=== PATIENT | male | born 1960 | race Caucasian/White ===

== ENCOUNTER 2018-07-18 10:23 | Emergency (ER) | payer MEDICAID, MEDICARE ==
--- OUTSIDE RECORDS SUMMARY | 2018-07-18 10:33 | XMS REPORT | Continuity of Care Document ---
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 Payers Date Identification Numbers Payment Provider Subscriber Effective: 2014 Policy Number: [id number] Medicare - Bswny Umd Main Johnson PayID: [id number] [address] [place] [address] Effective: 2014 Policy Number: [id number] Medicaid After Medicare Main Choiver Expires: 2017 Group Name: 2 1 [address] PayID: [id number] [place] [address] Effective: 2017 Policy Number: [id number] Medicaid After Medicare Maintejinder Choiver Group Name: 2 1 [address] PayID: [id number] [place] [address] Advance Directives Description No Information Available Problems Description No Information Family History Date Family Member(s) Observation Comments Father 87 Father Prostate Disease Father due to "Old Age" () Mother 86 Mother Stroke Age 83 on coumadin Mother due to "Old Age" () Social History Type Date Description Comments Sex Unknown Marital Status Lives With Alone Diet Healthy, Well Balanced he does not eat candy or soda...He does eat typical [place] foods....subs, fish sandwich..gets some vegetables. 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 Tobacco Use Start: Unknown Never Smoked Cigarettes ETOH Use Rarely consumes alcohol once/month at most Enjoy Exercising Enjoys exercising he walks on occasion, not as active as he used to be Sun Exposure Does not use sunscreen Sun Exposure Has never experienced blistering from sunburns Seat Belt/Car Seat always uses car seat Bike Helmet Always Currently Active Patient is currently not currently sexually sexually active active STD's No STD History Allergies, Adverse Reactions, Alerts Description No Known Drug Allergies Medications Medication Date Status Form Strength Qnty SIG Indications Ordering Provider Flomax 06/20/ Active Capsules 0.4mg 30cap 1 by mouth N40.1 Shawnti 2019 s every day JOSEP DobsonP-C Sildenafil 08/18/ Active Tablets 20mg 28tab Take Two F52.21 Shawnti Citrate 2017 s Tablets By Willy Dosbon 1 Hour PICKING MACHINE OPERATOR HELPER-C Prior To [place] / Active Tablets 300mg 3 tabs po Unknown Carbonate 0000 bid Lamotrigine / Active Tablets 300mg JerichoG 0000 MD allie Risperidone / Active Tablets 1mg (pt states Ramon Echavarria 0000 he takes MD allie rarely) Levothyroxine / Active Tablets 75mcg Ramon Echavarria Sodium 0000 MD allie Hydroxyzine HCL / Active Tablets 50mg (pt states Unknown 0000 he takes rarely) Azithromycin 01/11/ Hx Tablets 250mg 6tabs 2 by mouth Ramesh 2017 - then 1 Mazin Llanos, 06/20/ by mouth PICKING MACHINE OPERATOR HELPER-C 2019 daily for 4 days Benzonatate 01/11/ Hx Capsules 100mg 30cap 1 by mouth Ramesh 2017 three times Mazin Llanos, 06/20/ a day if PICKING MACHINE OPERATOR HELPER-C 2018 needed for cough Zyrtec Allergy 08/10/ Hx Tablets 10mg 30tab 1 tab daily R05 Oneyda 2017 - for Shortle, 09/29/ allergies/po MEDICAL ASSOCIATE 2017 [address] nasal drip Sildenafil 07/07/ Hx Tablets 50mg 14tab 1 by mouth 1 F52.21 Shawnti Citrate 2017 - s hour prior Mazin Llanos, 08/18/ to sexual PICKING MACHINE OPERATOR HELPER-C 2018 activity Cialis 07/06/ Hx Tablets 20mg 14tab take 1/2 to F52.21 Justicewnti 2017 - 1 tablet by Mazin Llanos, 07/07/ mouth as PICKING MACHINE OPERATOR HELPER-C 2018 needed Benzonatate 01/05/ Hx Capsules 200mg 30cap 1 by mouth R05 Oneyda 2017 - s three times Shortle, 09/11/ a day for MEDICAL ASSOCIATE 2018 cough Benzonatate 11/25/ Hx Capsules 200mg 30cap 1 by mouth J18.9 Ramesh 2017 - s three times R. Storm, 01/05/ a day for PICKING MACHINE OPERATOR HELPER-C 2017 cough Azithromycin 11/25/ Hx Tablets 250mg 6tabs 2 by mouth J18.9 Justicewnti 2017 - today then 1 R. Storm, 12/05/ by mouth PICKING MACHINE OPERATOR HELPER-C 2017 daily for 4 days Nizoral 07/13/ Hx Cream 2% 30gm apply qd for 110.1 Miri 2006 - 2-3 weeks A. 04/01/ Bobby, 2013 [facility] Lamotrigine 01/26/ Hx Tablets 25mg 50tab 1 hs x2 Silvio 2004 - s weeks, then Lessinger 07/13/ 2 hs x 2 , MTrudy 2006 weeks Lamotrigine 01/26/ Hx Tablets 100mg 60tab 1 hs x 1 Silvio 2004 - s week, then 1 Lessinger 07/13/ bid , Isis 2006 Zyprexa 03/17/ Hx Tablets 2.5mg 60tab 1-2 hs Silvio 2002 - s [facility] 07/13/ , Isis 2006 Anusol-HC 2.5 % 01/06/ Hx 30gm apply qd/bid Silvio Cream 2002 - prn [facility] 07/13/ Isis 2006 Nizoral 09/05/ Hx Cream 2% 60gm apply qd Miri 2001 - x2-6 weeks A. 12/18/ Bobby, 2003 [facility] [place] 09/05/ Hx 300mg 270un 3 hs Silvio 2001 - its [facility] 07/13/ , Isis 2006 Cogentin // Hx Solution 1mg/ml Unknown 2013 Vitamin B12 / Hx Tablets ER 1000mcg 2 po qd Unknown - 2013 Risperdal / Hx Tablets 3mg 1 PO hs Unknown - 2013 Cogentin / Hx Solution 1mg/ml 1 mg PO Unknown 0000 - daily 2014 Vistaril / Hx Capsules 50mg 1 po hs Unknown 0000 - 2014 Fluphenazine / Hx Solution 25mg/ml 25mg every Unknown Decanoate 0000 - other week 2014 Medications Administered in Office Medication Date Status Form Strength Qnty SIG Indications Ordering Provider TB,Intradermal Administered Injection Unknown (PPD, Mantoux) 012 Immunizations CPT Code Status Date Vaccine Lot # [id number] Given 09/29/2017 Tdap (Adacel) [id number] Given 01/05/2017 Influenza Virus Vaccine, Quadrivalent, 3 Yr > [id number] Quad, Preserv Free 60285 Given 02/11/2016 Influenza Virus Vaccine, Quadrivalent, 3 Yr > [id number] Quad, Preserv Free 89605 Given 04/01/2013 Influenza Vaccine-Preservative Free 3 Yrs And [id number] Above 45438 Given 08/28/2008 DT (Adult) 55539 Given 07/13/2006 Td Age 7 to adult Decavac, Tenivac, [employer] [id number] 78732 Given 08/11/1994 DT (Adult) Vital Signs Date Vital Result Comment 06/20/2018 4:31pm Weight 300.00 lb Weight 136.080 kg BP Systolic 130 mmHg BP Diastolic 88 mmHg Heart Rate 80 /min Body Temperature 96.5 F Respiratory Rate 16 /min O2 % BldC Oximetry 94 % 01/11/2018 4:25pm Weight 307.00 lb Weight 139.255 kg BP Systolic 132 mmHg BP Diastolic 80 mmHg Heart Rate 84 /min Body Temperature 98.5 F Respiratory Rate 18 /min O2 % BldC Oximetry 95 % 09/29/2017 1:38pm Weight 300.00 lb Weight 136.080 kg BP Systolic 144 mmHg BP Diastolic 88 mmHg Heart Rate 78 /min Body Temperature 98.3 F Respiratory Rate 18 /min Height 73.5 inches 6'1.50" BMI (Body Mass Index) 39.0 kg/m2 O2 % BldC Oximetry 98 % 09/11/2017 10:50am Weight 299.00 lb Weight 135.626 kg BP Systolic 138 mmHg BP Diastolic 92 mmHg Heart Rate 77 /min Body Temperature 98.5 F Respiratory Rate 17 /min Height 73 inches 6'1" BMI (Body Mass Index) 39.4 kg/m2 O2 % BldC Oximetry 96 % 08/10/2017 4:43pm Weight 305.00 lb Weight 138.348 kg BP Systolic 138 mmHg BP Diastolic 82 mmHg Heart Rate 72 /min Body Temperature 99.2 F Respiratory Rate 16 /min O2 % BldC Oximetry 98 % 07/06/2017 9:11am Weight 301.00 lb Weight 136.534 kg BP Systolic 144 mmHg BP Diastolic 82 mmHg Heart Rate 74 /min Body Temperature 97.5 F Respiratory Rate 18 /min 03/30/2017 11:34am BP Systolic 130 mmHg BP Diastolic 78 mmHg Heart Rate 72 /min Body Temperature 98.5 F Respiratory Rate 15 /min O2 % BldC Oximetry 98 % 01/05/2017 4:12pm Weight 298.00 lb Weight 135.173 kg BP Systolic 180 mmHg BP Diastolic 65 mmHg Heart Rate 80 /min Body Temperature 98.6 F O2 % BldC Oximetry 98 % 11/25/2016 10:45am Weight 287.00 lb Weight 130.183 kg BP Systolic 120 mmHg BP Diastolic 80 mmHg Heart Rate 80 /min Body Temperature 99.1 F Respiratory Rate 20 /min O2 % BldC Oximetry 96 % 02/22/2016 8:53am Weight 289.00 lb Weight 131.090 kg BP Systolic 130 mmHg BP Diastolic 78 mmHg Heart Rate 60 /min Body Temperature 98.6 F Respiratory Rate 16 /min 02/11/2016 10:31am Weight 288.00 lb Weight 130.637 kg BP Systolic 146 mmHg BP Diastolic 90 mmHg Heart Rate 66 /min Body Temperature 98.2 F Height 72.5 inches 6'0.50" BMI (Body Mass Index) 38.5 kg/m2 09/29/2014 8:49am Weight 276.00 lb Weight 125.194 kg BP Systolic 130 mmHg BP Diastolic 80 mmHg Heart Rate 68 /min Height 73.5 inches 6'1.50" BMI (Body Mass Index) 35.9 kg/m2 04/01/2013 10:05am Weight 248.00 lb Weight 112.493 kg BP Systolic 100 mmHg BP Diastolic 70 mmHg Heart Rate 72 /min 06/29/2010 9:11am Weight 244.00 lb Weight 110.678 kg BP Systolic 116 mmHg BP Diastolic 74 mmHg Body Temperature 97.7 F 09/29/2009 4:56pm Weight 257.00 lb Weight 116.575 kg BP Systolic 110 mmHg BP Diastolic 70 mmHg Heart Rate 64 /min 09/21/2009 4:36pm Weight 262.00 lb Weight 118.843 kg BP Systolic 120 mmHg BP Diastolic 74 mmHg Heart Rate 64 /min 01/10/2008 12:28pm Weight 230.00 lb Weight 104.328 kg BP Systolic 130 mmHg BP Diastolic 60 mmHg Heart Rate 72 /min Height 72.5 inches 6'0.50" BMI (Body Mass Index) 30.8 kg/m2 03/06/2007 11:19am Weight 236.00 lb Weight 107.050 kg BP Systolic 138 mmHg BP Diastolic 78 mmHg Body Temperature 97.0 F Height 72.5 inches 6'0.50" BMI (Body Mass Index) 31.6 kg/m2 07/13/2006 1:33pm Weight 243.00 lb Weight 110.225 kg BP Systolic 110 mmHg BP Diastolic 70 mmHg Heart Rate 62 /min Height 72.5 inches 6'0.50" BMI (Body Mass Index) 32.5 kg/m2 01/20/2006 11:29am Weight 247.00 lb Weight 112.039 kg BP Systolic 100 mmHg BP Diastolic 70 mmHg Body Temperature 98.7 F 01/26/2005 4:43pm Weight 260.00 lb Weight 117.936 kg BP Systolic 130 mmHg BP Diastolic 80 mmHg 01/19/2005 4:04pm Weight 256.00 lb Weight 116.122 kg BP Systolic 128 mmHg BP Diastolic 80 mmHg 03/31/2003 4:04pm Weight 277.00 lb Weight 125.647 kg BP Systolic 130 mmHg BP Diastolic 80 mmHg 03/17/2003 4:01pm Weight 265.00 lb Weight 120.204 kg BP Systolic 120 mmHg BP Diastolic 76 mmHg 01/06/2003 5:30pm Weight 271.00 lb Weight 122.926 kg BP Systolic 138 mmHg BP Diastolic 80 mmHg 03/15/2002 3:20pm Weight 256.00 lb Weight 116.100 kg BP Systolic 120 mmHg BP Diastolic 70 mmHg 12/07/2001 4:23pm Weight 247.00 lb Weight 112.000 kg BP Systolic 110 mmHg BP Diastolic 70 mmHg Heart Rate 80 /min Respiratory Rate 18 /min 09/05/2001 4:04pm Weight 252.00 lb BP Systolic 120 mmHg BP Diastolic 80 mmHg Heart Rate 60 /min Height 71 inches BMI (Body Mass Index) 35.1 kg/m2 Results Test Date Facility Test Result H/L Range Note Laboratory test 06/20/2018 [facility] PSA Screening 1.073 ng/mL N 0-4.000 1 finding [phone] Urine DIP 06/20/2018 In House Lab Leukocytes Neg Neg [phone] - Urine Nitrites Neg Neg Urobilinogen Norm Norm Total Protein Urine Neg Neg Urine pH 5 5-6 Urine Blood Neg Neg Specific [place] 1.01 1.01-1.02 Urine Ketones NEG Neg Urine Bilirubin NEG Neg Urine Glucose NORM Norm Comp Metabolic 08/18/2017 [facility] Sodium 138 mmol/ L Low 139-145 2 Panel [phone] Potassium 4.5 mmol/L N 3.5-5.0 Chloride 108 mmol/L N 101-111 Co2 Carbon Dioxide 24 mmol/L N 22-32 Anion Gap 6 mmol/L N 2-11 Glucose 117 mg/dL High 70-100 Blood Urea Nitrogen 14 mg/dL N 6-24 Creatinine 1.03 mg/dL N 0.67-1.17 BUN/Creatinine Ratio 13.6 N 8-20 Calcium 9.8 mg/dL N 8.6-10.3 Total Protein 6.9 g/dL N 6.4-8.9 Albumin 4.3 g/dL N 3.2-5.2 Globulin 2.6 g/dL N 2-4 Albumin/Globulin Ratio 1.7 N 1-3 Total Bilirubin 0.50 mg/dL N 0.2-1.0 Alkaline Phosphatase 68 U/L N 34-104 Alt 36 U/L N 7-52 Ast 21 U/L N 13-39 Egfr Non- 75.0 >60 Egfr 96.4 >60 3 Lipid Profile 08/18/2017 [facility] Triglycerides 131 mg/dL 4 (Trig/Chol/HDL) [phone] Cholesterol 126 mg/dL 5 HDL Cholesterol 30.3 mg/dL 6 LDL Cholesterol 70 mg/dL 7 Laboratory test 08/18/2017 [facility] [place] 0.89 mmol/L N 0.6-1.2 8 finding [phone] Thyroxine 7.18 g/mL N 6.09-12.23 9 TSH (Thyroid Stimulating Horm) 5.03 mcIU/mL N 0.34-5.60 10 Hemoglobin A1c 5.4 % N 4.0-5.6 11 Testosterone 07/06/2017 [facility] Free 4.90 3.87- 14.7 12 Free & Total [phone] Testosterone ng/dL ng/dl Testosterone 129 ng/dL Abnormal 240-950 13 Laboratory 07/06/2017 [facility] Syphillis Igg Nonreactive Nonreactive 14 test finding [phone] W/Reflex RPR HIV 1/2 AB 07/06/2017 [facility] HIV 1 2 Nonreactive Nonreactive 15 Evaluation [phone] Antibody GC/Chlamydia 07/06/2017 [facility] Chlamydia Negative Negative Amplified Rna [phone] trachomatis Rna Neisseria gonorrhoeae (GC) Rna Negative Negative T.Vaginalis, Misc, 07/06/2017 [facility] Trichomonas Urine (Male 16 Amp Rna [phone] vaginalis Source: Carmela <SEE NOTE> T. vaginalis, Misc, amp Rna Negative Negative 17 CBC No Diff 07/06/2017 [facility] White Blood 6.3 10^ 3/uL N 3.5-10.8 [phone] Count Red Blood Count 5.20 10^6/uL N 4.0-5.4 Hemoglobin 15.7 g/dL N 14.0-18.0 Hematocrit 47 % N 42-52 Mean Corpuscular Volume 90 fL N 80-94 Mean Corpuscular Hemoglobin 30 pg N 27-31 Mean Corpuscular HGB Conc 34 g/dL N 31-36 Red Cell Distribution Width 14 % N 10.5-15 Platelet Count 221 10^3/uL N 150-450 Mean Platelet Volume 8.3 um3 N 7.4-10.4 Laboratory test 07/06/2017 [facility] TSH (Thyroid 2.90 mcIU/mL N 0.34-5.60 18 finding [phone] Stim Horm) PSA Screening 2.033 ng/mL N 0-4.000 19 Hemoglobin A1c (Glyco HGB) 5.5 % N 4.0-5.6 20 Hepatitis C Antibody Nonreactive Nonreactive 21 Lipid Profile 07/06/2017 [facility] Triglycerides 152 mg/dL 22 (Trig/Chol/HDL) [phone] Cholesterol 127 mg/dL 23 HDL Cholesterol 29.0 mg/dL 24 LDL Cholesterol 68 mg/dL 25 Comp Metabolic Panel 07/06/2017 [facility] Sodium 139 mmol/L N 139-145 [phone] Potassium 4.2 mmol/L N 3.5-5.0 Chloride 109 mmol/L N 101-111 Co2 Carbon Dioxide 24 mmol/L N 22-32 Anion Gap 6 mmol/L N 2-11 Glucose 125 mg/dL High 70-100 Blood Urea Nitrogen 13 mg/dL N 6-24 Creatinine 0.90 mg/dL N 0.67-1.17 BUN/Creatinine Ratio 14.4 N 8-20 Calcium 9.6 mg/dL N 8.6-10.3 Total Protein 7.0 g/dL N 6.4-8.9 Albumin 4.5 g/dL N 3.2-5.2 Globulin 2.5 g/dL N 2-4 Albumin/Globulin Ratio 1.8 N 1-3 Total Bilirubin 0.30 mg/dL N 0.2-1.0 Alkaline Phosphatase 69 U/L N 34-104 Alt 24 U/L N 7-52 Ast 16 U/L N 13-39 Egfr Non- 87.6 >60 Egfr 112.7 >60 26 Comp Metabolic Panel 05/10/2016 [facility] Sodium 135 mmol/L N 133-145 [phone] Potassium 4.5 mmol/L N 3.5-5.0 Chloride 102 mmol/L N 101-111 Co2 Carbon Dioxide 28 mmol/L N 22-32 Anion Gap 5 mmol/L N 2-11 Glucose 100 mg/dL N 70-100 Blood Urea Nitrogen 13 mg/dL N 6-24 Creatinine 1.03 mg/dL N 0.67-1.17 BUN/Creatinine Ratio 12.6 N 8-20 Calcium 9.7 mg/dL N 8.6-10.3 Total Protein 7.0 g/dL N 6.4-8.9 Albumin 4.4 g/dL N 3.2-5.2 Globulin 2.6 g/dL N 2-4 Albumin/Globulin Ratio 1.7 N 1-3 Total Bilirubin 0.60 mg/dL N 0.2-1.0 Alkaline Phosphatase 63 U/L N 34-104 Alt 17 U/L N 7-52 Ast 15 U/L N 13-39 Egfr Non- 75.3 N >60 Egfr 96.8 N >60 27 Lipid Profile 05/10/2016 [facility] Triglycerides 354 mg/dL N 28 (Trig/Chol/HDL) [phone] Cholesterol 161 mg/dL N 29 HDL Cholesterol 26.2 mg/dL N 30 LDL Cholesterol 64 mg/dL N 31 Laboratory test 05/10/2016 [facility] Thyroxine 6.91 ?g/dL N 6.09-12.23 finding [phone] TSH (Thyroid Stimulating Horm) 3.56 mcIU/mL N 0.34-5.60 Hemoglobin A1c 5.3 % N Less than 6.0 32 [place] 0.97 mmol/L N 0.6-1.2 Laboratory test 01/29/2015 [facility] Thyroxine 7.90 ?g/dL N 6.09-12.23 finding [phone] TSH (Thyroid Stimulating Horm) 2.30 ?IU/mL N 0.34-5.60 Laboratory test 11/24/2014 [facility] Surgical SEE RESULT 33 finding [phone] Pathology BELOW Urine DIP 09/29/2014 In House Lab Specific 1.010 1.01-1 (607)- - [place] .02 Urine pH 7 High 5-6 Leukocytes NEG Neg Urine Nitrites NEG Neg Total Protein, Urine NEG Neg Urine Glucose NORM Norm Urine Ketones NEG Neg Urobilinogen NORM Norm Urine Bilirubin NEG Neg Urine Blood NEG Neg CBC Auto Diff 09/29/2014 [facility] White [place] 6.6 10^3/uL N 4.8-10.8 [phone] Count Red Blood Count 5.28 10^6/uL N 4.0-5.4 Hemoglobin 15.5 g/dL N 14.0-18.0 Hematocrit 49 % N 42-52 Mean Corpuscular Volume 93 fL N 80-94 Mean Corpuscular Hemoglobin 30 pg N 27-31 Mean Corpuscular HGB Conc 32 g/dL N 31-36 Red Cell Distribution Width 13 % N 10.5-15 Platelet Count 217 10^3/uL N 150-450 Mean Platelet Volume 9 um3 N 7.4-10.4 Abs Neutrophils 4.2 10^3/uL N 1.5-7.7 Abs Lymphocytes 1.6 10^3/uL N 1.0-4.8 Abs Monocytes 0.5 10^3/uL N 0-0.8 Abs Eosinophils 0.2 10^3/uL N 0-0.6 Abs Basophils 0.1 10^3/uL N 0-0.2 Abs Nucleated RBC 0.01 10^3/uL N Granulocyte % 64.2 % N 38-83 Lymphocyte % 23.9 % Low 25-47 Monocyte % 7.4 % N 1-9 Eosinophil % 3.7 % N 0-6 Basophil % 0.8 % N 0-2 Nucleated Red Blood Cells % 0.2 N Laboratory test 09/29/2014 [facility] [place] 1.07 mmol/L N 0.6-1.2 34 finding [phone] Comp Metabolic 09/29/2014 [facility] Sodium 136 mmol/ L N 133-145 Panel [phone] Potassium 4.2 mmol/L N 3.5-5.0 Chloride 105 mmol/L N 101-111 Co2 Carbon Dioxide 25 mmol/L N 22-32 Anion Gap 6 mmol/L N 2-11 Glucose 103 mg/dL High 70-100 Blood Urea Nitrogen 13 mg/dL N 6-24 Creatinine 0.97 mg/dL N 0.67-1.17 BUN/Creatinine Ratio 13.4 N 8-20 Calcium 9.5 mg/dL N 8.6-10.3 Total Protein 7.0 g/dL N 6.4-8.9 Albumin 4.4 g/dL N 3.2-5.2 Globulin 2.6 g/dL N 2-4 Albumin/Globulin Ratio 1.7 N 1-3 Total Bilirubin 0.40 mg/dL N 0.2-1.0 Alkaline Phosphatase 63 U/L N 34-104 Alt 17 U/L N 7-52 Ast 15 U/L N 13-39 Egfr Non- 81.3 N >60 Egfr 104.5 N >60 35 Lipid Profile 09/29/2014 [facility] Triglycerides 271 mg/dL N 36 (Trig/Chol/HDL) [phone] Cholesterol 141 mg/dL N 37 HDL Cholesterol 26.7 mg/dL N 38 LDL Cholesterol 60 mg/dL N 39 Laboratory test 09/29/2014 [facility] TSH (Thyroid 3.59 ?IU/mL N 0.34-5.60 40 finding [phone] Stim Horm) Hemoglobin A1c (Glyco HGB) 5.1 % N Less than 6.0 41 CBC Auto Diff 10/09/2013 [facility] [place] 6.7 10^3/uL N 4.8-10.8 [phone] Count Red Blood Count 5.14 10^6/uL N 4.0-5.4 Hemoglobin 15.8 g/dL N 14.0-18.0 Hematocrit 47 % N 42-52 Mean Corpuscular Volume 91 fL N 80-94 Mean Corpuscular Hemoglobin 31 pg N 27-31 Mean Corpuscular HGB Conc 34 g/dL N 31-36 Red Cell Distribution Width 13 % N 10.5-15 Platelet Count 179 10^3/uL N 150-450 Mean Platelet Volume 8 um3 N 7.4-10.4 Abs Neutrophils 3.7 10^3/uL N 1.5-7.7 Abs Lymphocytes 2.1 10^3/uL N 1.0-4.8 Abs Monocytes 0.6 10^3/uL N 0-0.8 Abs Eosinophils 0.2 10^3/uL N 0-0.6 Abs Basophils 0 10^3/uL N 0-0.2 Abs Nucleated RBC 0.01 10^3/uL N Granulocyte % 55.5 % N 38-83 Lymphocyte % 31.7 % N 25-47 Monocyte % 8.6 % N 1-9 Eosinophil % 3.5 % N 0-6 Basophil % 0.7 % N 0-2 Nucleated Red Blood Cells % 0.1 N Laboratory test 10/09/2013 [facility] [place] 0.67 N 0.6-1.2 42 finding [phone] mmol/L Laboratory test 10/09/2013 [facility] TSH (Thyroid 2.97 IU/mL N 0.34-5.60 43 finding [phone] Stimulating Horm) Hemoglobin A1c 5.4 % N Less than 6.0 44 Lipid Profile 10/09/2013 [facility] Triglycerides 257 mg/dL N 45 (Trig/Chol/HDL) [phone] Cholesterol 141 mg/dL N 46 HDL Cholesterol 26.6 mg/dL N 47 LDL Cholesterol 63 mg/dL N 48 Comp Metabolic Panel 10/09/2013 [facility] Sodium 138 mmol/L N 133-145 [phone] Potassium 4.3 mmol/L N 3.7-5.6 Chloride 105 mmol/L N 101-111 Co2 Carbon Dioxide 27 mmol/L N 22-32 Anion Gap 6 mmol/L N 2-11 Glucose 102 mg/dL High 70-100 Blood Urea Nitrogen 12 mg/dL N 6-24 Creatinine 1.01 mg/dL N 0.67-1.17 BUN/Creatinine Ratio 11.9 N 8-20 Calcium 9.5 mg/dL N 8.6-10.3 Total Protein 7.0 g/dL N 6.4-8.9 Albumin 4.3 g/dL N 3.2-5.2 Globulin 2.7 g/dL N 2-4 Albumin/Globulin Ratio 1.6 N 1-3 Total Bilirubin 0.70 mg/dL N 0.2-1.0 Alkaline Phosphatase 51 U/L N 34-104 Alt 20 U/L N 7-52 Ast 14 U/L N 13-39 Egfr Non- 77.9 N >60 Egfr 100.2 N >60 49 Laboratory test 04/01/2013 [facility] TSH (Thyroid 4.65 0.34-5.60 finding [phone] Stimulating miu/mL Horm) Comp Metabolic 04/01/2013 [facility] Sodium 135 mmol/ L 133-145 Panel [phone] Potassium 4.1 mmol/L 3.5-5.0 Chloride 101 mmol/L 101-111 Co2 Carbon Dioxide 27.0 mmol/L 22-32 Anion Gap 7.0 mmol/L 2-11 Glucose 104 mg/dL High 70-100 Blood Urea Nitrogen 10 mg/dL 6-24 Creatinine 1.10 mg/dL 0.50-1.40 BUN/Creatinine Ratio 9.1 8-20 Calcium 9.6 mg/dL 8.1-9.9 Total Protein 7.1 g/dL 6.2-8.1 Albumin 4.5 g/dL 3.6-5.4 Globulin 2.6 g/dL 2-4 Albumin/Globulin Ratio 1.7 1-3 Total Bilirubin 1.0 mg/dL 0.4-1.5 Alkaline Phosphatase 59 U/L 30-110 Alt 14 U/L 14-54 Ast 18 U/L 12-42 Egfr Non- 70.6 >60 Egfr 90.8 >60 50 Lipid Profile 04/01/2013 [facility] Triglycerides 161 mg/dL 40-200 (Trig/Chol/HDL) [phone] Cholesterol 137 mg/dL Less than 200 HDL Cholesterol 27 mg/dL Low 40-60 51 Cholesterol/HDL Ratio 5.1 Average High 1-4.44 LDL Cholesterol 77.8 Less Than 100 52 CBC Auto Diff 06/24/2010 [facility] White [place] 11.1 CUMM High 4.8-10.8 [phone] Count Red Cell Count 4.89 CUMM 4.6-6.2 Hemoglobin 15.3 g/dL 14.0-18.0 Hematocrit 45 % 42-52 Mean Corpuscular Volume 92 um3 80-94 Mean Corpuscular Hemoglob 31 pg 27-31 Mean Corpuscular HGB Cone 34 g/dL 32-36 Redcell Distribution WDTH 13 % 10.5-15 Platelet Count 169 CUMM 150-450 Mean Platelet Volume 8.0 um3 7.4-10.4 53 Manual Differential 06/24/2010 [facility] Polysegmented 76 % 38-83 [phone] Neutrophil Lymphocyte 16 % Low 25-47 Monocyte 7 % 0-13 Eosinophil 1 % 0-6 Absolute Neutrophil Count 8.4 RBC Morphology NORMAL Basic Metabolic 06/24/2010 [facility] Sodium 134 mmol /L Low 135-145 Panel [phone] Potassium 3.5 mmol/L 3.5-5.0 Chloride 105 mmol/L 101-111 Co2 (Carbon Dioxide) 22.0 mmol/L 22-32 Anion Gap 7.0 mmol/L 2-11 54 Glucose 103 mg/dL High 70-100 BUN 14 mg/dL 6-24 Creatinine 1.00 mg/dL 0.50-1.40 One Over Creatinine 1.00 BUN/Creatinine Ratio 14.0 8-20 Calcium 9.4 mg/dL 8.1-9.9 eGFR Non- 79.8 > 60 eGFR 102.6 > 60 55 Laboratory test 06/24/2010 [facility] Acetaminophen < 10 g/mL Low 10-30 56 finding [phone] Alcohol < 10.0 mg/dL None Detected 57 Salicylate < 4.0 mg/dL Less Than 30 58 Urine Drug 06/24/2010 [facility] Amphetamines NONE DETECTED None SCR ED & [phone] Urine Screen Detect Pain Clinic Barbituates Urine Screen NONE DETECTED None Detect Benzodiazepine Ur Screen POSITIVE Abnormal None Detect Cannabinoid Urine Screen NONE DETECTED None Detect Cocaine Metabolites Urine NONE DETECTED None Detect Opiates Urine Screen NONE DETECTED None Detect PCP Urine Screen NONE DETECTED None Detect 59 Laboratory 06/24/2010 [facility] [place] 0.9 mmol/L 0.5-1.5 test finding [phone] Vad 09/21/2009 [facility] Vad Final NONREACTIVE Nonreactive 60 [phone] Laboratory 09/21/2009 [facility] Syphilis IgG NON- REACTIVE Nonreactive 61 test finding [phone] Urine 09/21/2009 [facility] Chlamydia On NEGATIVE Negative 62 GC/Chlamydia [phone] Urine GC On Urine NEGATIVE Negative 63 Laboratory test 08/21/2008 [facility] Acetaminophen < 10 Low 10-30 64 finding [phone] Stat g/mL Alcohol Stat < 10.0 mg/dL None Detected 65 Salicylate Stat < 4.0 mg/dL Less Than 30 66 [place] 0.7 mmol/L 0.5-1.5 Basic Metabolic 08/21/2008 [facility] Sodium 136 mmol /L 135-145 Panel Stat [phone] Potassium 3.8 mmol/L 3.5-5.0 Chloride 105 mmol/L 101-111 Co2 (Carbon Dioxide) 22.0 mmol/L 22-32 Anion Gap 9.0 mmol/L 2-11 67 Glucose 116 mg/dL High 70-100 68 BUN 14 mg/dL 6-24 Creatinine 1.10 mg/dL 0.50-1.40 One Over Creatinine 0.90 BUN/Creatinine Ratio 13.2 8-20 Calcium 9.7 mg/dL 8.1-9.9 69 CBC With 08[facility]21/2008 [facility] [facility] White Blood 11.8 CUMM High 4.8-10.8 Manual Diff [phone] Count Stat Red Cell Count 5.56 CUMM 4.6-6.2 Hemoglobin 17.3 g/dL 14.0-18.0 Hematocrit 49 % 42-52 Mean Corpuscular Volume 89 um3 80-94 Mean Corpuscular Hemoglob 31 pg 27-31 Mean Corpuscular HGB Cone 35 g/dL 32-36 Redcell Distribution WDTH 12 % 10.5-15 Platelet Count 247 CUMM 150-450 Mean Platelet Volume 7.7 um3 7.4-10.4 Polysegmented Neutrophil 74 % 38-83 Lymphocyte 14 % Low 25-47 Monocyte 10 % 0-13 Atypical Lymph 2 % 0-6 Absolute Neutrophil Count 8.7 RBC Morphology NORMAL Gcchlu 01/11/2008 [facility] GC On Urine NEGATIVE Negative 70 [phone] CHL On Urine NEGATIVE Negative 71 Vad 01/10/2008 [facility] Vad REFLEX TO Abnormal Nonreactive 72 [phone] Final VADWB Laboratory 01/10/2008 [facility] RPR NON Nonreactive test finding [phone] REACTIVE Vad Western Blot (SEE NOTE) 73 Lipid Profile 03/06/2007 [facility] Cholesterol, Total 139 mg/dL 120-200 74 [phone] HDL Cholesterol 31 mg/dL Low 40-60 LDL Cholesterol, Calc. 90 mg/dL 75 Triglycerides 88 mg/dL 76 LDL/HDL Cholesterol 2.9 77 Chol/HDL Cholesterol 4.5 78 Laboratory 03/06/2007 [facility] RPR NON-REACTIVE Non- Reactive test finding [phone] Laboratory 03/06/2007 In House Lab Strep Screen NEG Neg test finding (607)- - Chlamydia/GC 03/06/2007 [facility] Chlamydia Negative Negative Amplificat [phone] trachomatis, Maggie Neisseria gonorrhoeae, Maggie Negative Negative Vaginitis Dna 03/06/2007 [facility] Screen Gardnerella NEGATIVE Probe Screen [phone] Vaginalis Dna Screen Nika Species Dna NEGATIVE Laboratory test 03/06/2007 [facility] Screen NEGATIVE finding [phone] Trichomonas Vaginalis Dna Anti Viral AB 03/06/2007 [facility] HIV 1/O/2 <1.00 < 1.00 79 Screen [phone] Abs-Index Value HIV 1/O/2 Abs, Qual Non Reactive 80 Comp Metabolic 09/29/2006 [facility] One Over Creatinine 1.00 Panel [phone] Anion Gap 9.0 mmol/L 2-11 81 Albumin/Globulin Ratio 1.7 1-3 Albumin 4.0 GM/DL 3.6-5.4 Alkaline Phosphatase 49 U/L 39-117 Alt (SGPT) 39 U/L 17-63 Ast (Sgot) 24 U/L 12-42 BUN 15 mg/dL 6-24 Calcium 8.8 mg/dL 8.7-10.2 Chloride 103 mmol/L 101-111 Co2 (Carbon Dioxide) 27.0 mmol/L 22-32 Globulin 2.4 GM/DL 2-4 Glucose 105 mg/dL 70-105 Potassium 4.5 mmol/L 3.5-5.0 Sodium 139 mmol/L 135-145 Bilirubin Total 0.9 mg/dL 0.4-1.5 Total Protein 6.4 GM/DL 6.2-8.1 BUN/Creatinine Ratio 15.0 8-20 Creatinine 1.0 mg/dL 0.5-1.4 Lipid Profile 09/29/2006 [facility] Cholesterol/HDL 6.92 High 1-4.97 (Trig/Chol/HDL) [phone] Ratio AVERAGE Cholesterol 166 mg/dL Less Than 200 82 Triglyceride 147 mg/dL 40-200 High Density Lipoprotein 24 mg/dL Low 40-60 83 Low Density Lipoprotein 113 mg/dL High Less Than 100 84 Laboratory test 09/29/2006 [facility] TSH 1.29 MIU/ ML 0.34-5.60 finding [phone] CBC With 09/29/2006 [facility] White Blood 5.4 CUMM 4.8-10.8 Electronic Diff [phone] Count Abs Basophils 0 0-0.2 Abs Eosinophils 0.1 0-0.6 Absolute Neutrophil Count 3.3 1.5-7.7 Abs Lymphs 1.5 1.0-4.8 Abs Mononuclear 0.5 0-0.8 Basophil % 0.5 % 0-2 Hematocrit 48 % 42-52 Hemoglobin 16.4 g/dL 14.0-18.0 Eosinophil % 2.5 % 0-6 Gran % 60.3 % 38-83 Lymph % 27.8 % 20-45 Mean Corpuscular HGB Cone 34 g/dL 32-36 Mean Corpuscular Hemoglob 30 pg 27-31 Mean Corpuscular Volume 89 um3 80-94 Mean Platelet Volume 7.3 um3 Low 7.4-10.4 Mononuclear % 8.9 % 1-9 Platelet Count 192 CUMM 150-450 Red Cell Count 5.41 CUMM 4.6-6.2 Redcell Distribution WDTH 12 % 10.5-15 Laboratory test 09/29/2006 [facility] Valproic Acid 33.6 g/mL Low 50-100 85 finding [phone] (Depakene) Chlamydia/GC 07/13/2006 [facility] Chlamydia NEGATIVE Amp([facility]) [phone] Amplified Probe GC Amplified Probe NEGATIVE Urine DIP 07/13/2006 In House Lab Leukocytes NEG Neg (607)- - Urine Nitrites NEG Neg Urine pH 5 5-6 Total Protein, Urine NEG Neg Urine Glucose NORM Norm Urine Ketones NEG Neg Urobilinogen NORM Norm Urine Bilirubin NEG Neg Urine Blood NEG Neg Specific [place] N/A Low 1.01-1.02 Laboratory test 01/24/2005 Other [place] 0.67 finding Laboratory test 12/08/2003 [facility] [place] 0.5 mmol/L 0.5-1.5 finding [phone] Basic Metabolic 12/08/2003 [facility] Anion Gap 5.0 mmol/L 2-11 86 Panel [phone] BUN 12 mg/dL 6-24 Calcium 9.8 mg/dL 8.7-10.2 Chloride 106 mmol/L 101-111 Co2 (Carbon Dioxide) 28.0 mmol/L 22-32 Creatinine 1.0 mg/dL 0.5-1.4 Glucose 112 mg/dL High 70-105 Potassium 4.4 mmol/L 3.5-5.0 Sodium 139 mmol/L 135-145 BUN/Creatinine Ratio 12.0 8-20 Laboratory test 12/08/2003 [facility] TSH 1.44 MIU/ ML 0.34-5.60 finding [phone] Urine DIP 09/05/2001 In House Lab Leukocytes NGE Neg (607)- - Urine Nitrites NEG Neg Urine pH 5 5-6 Total Protein, Urine TR Neg Urine Glucose NORM Norm Urine Ketones NEG Neg Urobolinogen NORM Norm Urine Bilirubin NEG Neg Urine Blood NEG Neg Specific [place] NA Low 1.01-1.02 Laboratory test 08/30/2001 [facility] [place] 0.4 Low finding [phone] Comp Met 08/30/2001 [facility] Triglycerides 572 mg/ dL High 40-200 Panel/Lipid [facility] [phone] High Density Lipoprotein 26 Low Cholesterol/HDL Ratio 5.92 AVERAGE High 1-4.97 Comprehensive 07/19/2000 [facility] Glucose 90 mg/dL 61.0 - 113.0 Metabolic [phone] BUN 18 mg/dL 5.0 - 21.0 Creatinine, Serum 1.0 mg/dL 0.6 - 1.5 Sodium 141 mmol/L 135.0 - 146.0 Potassium 4.2 mmol/L 3.6 - 5.0 Chloride 106 mmol/L 98.0 - 108.0 Carbon Dioxide 26 mmol/L 23.0 - 33.0 Albumin 4.2 g/dL 3.8 - 4.6 Protein, Total 7.3 g/dL 6.2 - 8.0 Calcium 9.2 mg/dL 8.7 - 10.3 Alkaline Phosphatase 74 U/L 45.0 - 120.0 Sgot (Ast) 19 U/L 9.0 - 43.0 SGPT (Alt) 25 U/L 11.0 - 51.0 Bilirubin, Total 0.40 mg/dL 0.2 - 1.3 Laboratory test 07/19/2000 [facility] TSH (Thyrotropin) 1.14 0.49 - finding [phone] uIU/ml 4.67 1 Serum levels of PSA measured using the Alina Kendall DXI Hybritech immunoassay should not be interpreted as absolute evidence of the presence or absence of disease. The PSA value should be used in conjunction with other pertinent clinical diagnostic procedures. The values obtained with different assay methods or kits cannot be used interchangeably. 2 FASTING 3 Because ethnic data is not always readily available, this report includes an eGFR for both -Americans and non- Americans. The National Kidney Disease Education Program (NKDEP) does not endorse the use of the MDRD equation for patients that are not between the ages of 18 and 70, are , have extremes of body size, muscle mass, or nutritional status, or are non- or non-. According to the National Kidney Foundation, irrespective of diagnosis, the stage of the disease is based on the level of kidney function: Stage Description GFR(mL/min/1.73 m(2)) 1 Kidney damage with normal or decreased GFR 90 2 Kidney damage with mild decrease in GFR 60-89 3 Moderate decrease in GFR 30-59 4 Severe decrease in GFR 15-29 5 Kidney failure <15 (or dialysis) 4 Desirable: <150 Borderline High: 150-199 High: 200-499 Very High: >500 5 Desirable: <200 Borderline High: 200-239 High: >239 6 Low: <40 Desirable: 40-60 High: >60 7 Desirable: <100 Near Optimal: 100-129 Borderline High: 130-159 High: 160-189 Very High: >189 8 FASTING 9 FASTING 10 FASTING 11 Therapeutic target for the treatment of diabetes mellitus patients is <7% HBA1C, and in selective patients <6.0%. Please refer to [place] [employer] diabetic care guidelines for further information. 12 ADDITIONAL INFORMATION Testing performed by [facility]. This test was developed and its performance characteristics determined by [facility] in a manner consistent with CLIA requirements. This test has not been cleared or approved by the U.S. Food and Drug Administration. 13 ADDITIONAL INFORMATION Testing performed by Liquid Chromatography-Tandem Mass Spectrometry (LC-MS/MS). This test was developed and its performance characteristics determined by [facility] in a manner consistent with CLIA requirements. This test has not been cleared or approved by the U.S. Food and Drug Administration. Test Performed by: [facility] - [address] [address] 14 Warning: A positive result is not useful for establishing a diagnosis of syphilis. In most situations, such a result may reflect a prior treated infection; a negative result can exclude a diagnosis of syphilis except for incubating or early primary disease. 15 It is recognized that currently available assays for the detection of antibodies to HIV-1 and/or HIV-2 may not detect all infected individuals. HIV antibodies may be undetectable in some stages of the infection and in some clinical conditions. The performance of this assay has not been established for populations of infants or children. Assayed by Chemiluminescence Microparticle Immunoassay on the Siemens Advia Centaur CP. Values obtained with different methods or kits cannot be used interchangeably.The diagnostic specificity of the ADVIA Centaur 1/O/2 Enhanced assay in the low risk population was 99.90% (6052/6058) with a 95% confidence interval of 99.78 to 99.96%. 16 Urine (Male Patient) 17 ADDITIONAL INFORMATION This test has been modified from the product engineer's instructions. Its performance characteristics were determined by [facility] in a manner consistent with CLIA requirements. This test has not been cleared or approved by the U.S. Food and Drug Administration. Test Performed by: [address] [id number] 18 [id number] 19 Serum levels of PSA measured using the Alina Sweet DXI Hybritech immunoassay should not be interpreted as absolute evidence of the presence or absence of disease. The PSA value should be used in conjunction with other pertinent clinical diagnostic procedures. The values obtained with different assay methods or kits cannot be used interchangeably. 20 Therapeutic target for the treatment of diabetes mellitus patients is <7% HBA1C, and in selective patients <6.0%. Please refer to [place] [employer] diabetic care guidelines for further information. 21 [id number] 22 Desirable: <150 Borderline High: 150-199 High: 200-499 Very High: >500 23 Desirable: <200 Borderline High: 200-239 High: >239 24 Low: <40 Desirable: 40-60 High: >60 25 Desirable: <100 Near Optimal: 100-129 Borderline High: 130-159 High: 160-189 Very High: >189 26 Because ethnic data is not always readily available, this report includes an eGFR for both -Americans and non- Americans. The National Kidney Disease Education Program (NKDEP) does not endorse the use of the MDRD equation for patients that are not between the ages of 18 and 70, are , have extremes of body size, muscle mass, or nutritional status, or are non- or non-. According to the National Kidney Foundation, irrespective of diagnosis, the stage of the disease is based on the level of kidney function: Stage Description GFR(mL/min/1.73 m(2)) 1 Kidney damage with normal or decreased GFR 90 2 Kidney damage with mild decrease in GFR 60-89 3 Moderate decrease in GFR 30-59 4 Severe decrease in GFR 15-29 5 Kidney failure <15 (or dialysis) 27 Because ethnic data is not always readily available, this report includes an eGFR for both -Americans and non- Americans. The National Kidney Disease Education Program (NKDEP) does not endorse the use of the MDRD equation for patients that are not between the ages of 18 and 70, are , have extremes of body size, muscle mass, or nutritional status, or are non- or non-. According to the National Kidney Foundation, irrespective of diagnosis, the stage of the disease is based on the level of kidney function: Stage Description GFR(mL/min/1.73 m(2)) 1 Kidney damage with normal or decreased GFR 90 2 Kidney damage with mild decrease in GFR 60-89 3 Moderate decrease in GFR 30-59 4 Severe decrease in GFR 15-29 5 Kidney failure <15 (or dialysis) 28 Desirable <150 Borderline high 150-199 High 200-499 Very High >500 29 Desirable <200 Borderline high 200-239 High >239 30 Low <40 Desirable: 40-60 High: >60 31 Desirable: <100 mg/dL Near Optimal: 100-129 mg/dL Borderline High: 130-159 mg/dL High: 160-189 mg/dL Very High: >189 mg/dL 32 Therapeutic target for the treatment of diabetes Mellitus patients is <7% HBA1C, and in selective patients <6.0%.Please refer to [place] [employer] Diabetic care guidelines for further information. 33 SEE RESULT BELOW Name: MAIN JOHNSON : [address]: Lalit Craven MD Acct: [id number] Unit: [id number] AGE: 54 Location: ENDO Re11/24/14 SEX: M Status: REG REF SPEC: [id number] LESLIE: 11/24/14-[address]: Lalit Craven MD REQ: [id number] RECD: 11/24/14 STATUS: JELANI QUINTANILLA DR: Ramesh Llanos MEDICAL ASSOCIATE _ ORDERED: LEVEL IV FINAL DIAGNOSIS Colon, cecum, biopsy: -- Hyperplastic polyp. CLINICAL HISTORY No additional information provided POST-OPERATIVE DIAGNOSIS Screening colonoscopy to terminal ileum - cecal polyp biopsied, sigmoid tics ; 5 years GROSS DESCRIPTION The specimen is received in formalin labeled, Biopsy Cecal Polyp, and consists of a 0.8 x 0.3 x 0.1 cm post-pink irregular soft tissue fragment, which is entirely submitted in one cassette. Signed (signature on file) Shante Rodriguez MD 04/10 1040 END OF REPORT * ML=Testing performed at Main Lab DEPARTMENT OF PATHOLOGY, [address] [place] [address] Emory Nguyễn M.D. Director [facility] # [id number] [address] Echavarria as well 35 Because ethnic data is not always readily available, this report includes an eGFR for both -Americans and non- Americans. The National Kidney Disease Education Program (NKDEP) does not endorse the use of the MDRD equation for patients that are not between the ages of 18 and 70, are , have extremes of body size, muscle mass, or nutritional status, or are non- or non-. According to the National Kidney Foundation, irrespective of diagnosis, the stage of the disease is based on the level of kidney function: Stage Description GFR(mL/min/1.73 m(2)) 1 Kidney damage with normal or decreased GFR 90 2 Kidney damage with mild decrease in GFR 60-89 3 Moderate decrease in GFR 30-59 4 Severe decrease in GFR 15-29 5 Kidney failure <15 (or dialysis) 36 Desirable <150 Borderline high 150-199 High 200-499 Very High >500 37 Desirable <200 Borderline high 200-239 High >239 38 Low <40 Desirable: 40-60 High: >60 39 Desirable: <100 mg/dL Near Optimal: 100-129 mg/dL Borderline High: 130-159 mg/dL High: 160-189 mg/dL Very High: >189 mg/dL [address] Echavarria as well 41 Therapeutic target for the treatment of diabetes Mellitus patients is <7% HBA1C, and in selective patients <6.0%.Please refer to [place] [employer] Diabetic care guidelines for further information. 42 FASTING 43 FASTING 44 Therapeutic target for the treatment of diabetes Mellitus patients is <7% HBA1C, and in selective patients <6.0%.Please refer to [place] [employer] Diabetic care guidelines for further information. 45 Desirable <150 Borderline high 150-199 High 200-499 Very High >500 46 Desirable <200 Borderline high 200-239 High >239 47 Low <40 Desirable: 40-60 High: >60 48 Desirable <100 Near Optimal 100-129 Borderline high 130-159 High 160-189 Very High >189 49 Because ethnic data is not always readily available, this report includes an eGFR for both -Americans and non- Americans. The National Kidney Disease Education Program (NKDEP) does not endorse the use of the MDRD equation for patients that are not between the ages of 18 and 70, are , have extremes of body size, muscle mass, or nutritional status, or are non- or non-. According to the National Kidney Foundation, irrespective of diagnosis, the stage of the disease is based on the level of kidney function: Stage Description GFR(mL/min/1.73 m(2)) 1 Kidney damage with normal or decreased GFR 90 2 Kidney damage with mild decrease in GFR 60-89 3 Moderate decrease in GFR 30-59 4 Severe decrease in GFR 15-29 5 Kidney failure <15 (or dialysis) 50 Because ethnic data is not always readily available, this report includes an eGFR for both -Americans and non- Americans. The National Kidney Disease Education Program (NKDEP) does not endorse the use of the MDRD equation for patients that are not between the ages of 18 and 70, are , have extremes of body size, muscle mass, or nutritional status, or are non- or non-. According to the National Kidney Foundation, irrespective of diagnosis, the stage of the disease is based on the level of kidney function: Stage Description GFR(mL/min/1.73 m(2)) 1 Kidney damage with normal or decreased GFR 90 2 Kidney damage with mild decrease in GFR 60-89 3 Moderate decrease in GFR 30-59 4 Severe decrease in GFR 15-29 5 Kidney failure <15 (or dialysis) 51 HDL Interpretation: Undesirable: High Risk: Less than 40 mg/dL Desirable: Low Risk: Greater than 60 mg/dL 52 LDL Interpretation: Low Risk Optimal Level: LDL Less than 100 mg/dL Near or Above Optimal: LDL 100-129 mg/dL Borderline High Risk: LDL 130-159 mg/dL High Risk: LDL 160-189 mg/dL Very High Risk: LDL Greater than 189 mg/dL 53 Lymphopenia % 54 Anion gap measurement may be of limited value in the presence of any alkalosis, especially in a combined acid base disorder. . 55 Because ethnic data is not always readily available, this report includes an eGFR for both -Americans and non- Americans. The National Kidney Disease Education Program (NKDEP) does not endorse the use of the MDRD equation for patients that are not between the ages of 18 and 70, are , have extremes of body size, muscle mass, or nutritional status, or are non- or non-. According to the National Kidney Foundation, irrespective of diagnosis, the stage of the disease is based on the level of kidney function: Stage Description GFR(mL/min/1.73 m(2)) 1 Kidney damage with normal or decreased GFR 90 2 Kidney damage with mild decrease in GFR 60-89 3 Moderate decrease in GFR 30-59 4 Severe decrease in GFR 15-29 5 Kidney failure <15 (or dialysis) 56 TOXIC LEVELS: GREATER THAN 150 MCG/ML @ 4HR POST INGEST GREATER THAN 50 MCG/ML @ 12HR POST INGEST The detection limit for ACETAMINOPHEN is 10.0 mcg/ml . Values less than 10.0 mcg/ml cannot be accurately measured. . 57 The detection limit for ETHANOL is 10.0 mg/dl . Values less than 10.0 mg/dl cannot be accurately measured. . 58 The detection limit for SALICYLATE is 4.0 mg/dl. Values less than 4.0 mg/dl cannot be accurately measured. . 59 THE URINE SPECIMEN WAS TESTED AT THE LISTED CUTOFFS: DRUG CLASS TEST LEVEL (NG/ML) AMPHETAMINES 300 BARBITUATES 200 BENZODIAZEPINE METABOLITES 200 COCAINE METABOLITES 300 CANNABINOIDS 25 OPIATES 200 PCP 25 THIS IS A SCREENING PROCEDURE. POSITIVE RESULTS ARE NOT CONFIRMED. SPECIMEN WAS RECEIVED WITHOUT CHAIN OF CUSTODY. RESULTS SHOULD BE USED FOR MEDICAL PURPOSES ONLY. . 60 FINAL INTERPRETATION: No HIV antibody is detected. . This information has been disclosed to you from confidential records which are protected by [place] State law. State law prohibits you from making further disclosure of this information without the specific written consent of the person to whom it pertains, or as otherwise permitted by law. Any unauthorized further disclosure in violation of state law may result in a fine or long term sentence or both. General authorization for the release of medical or other information is not, except in limited circumstances set forth in Part 63, Title 10, of [facility], sufficient authorization for further disclosure. Disclosure of confidential HIV information that occurs as the result of a general authorization for the release of medical or other information will be in violation of the state law and may result in a fine or a long term sentence. . 61 Warning: A positive result is not useful for establishing a diagnosis of syphilis. In most situations, such a result may reflect a prior treated infection; a negative result can exclude a diagnosis of syphilis except for incubating or early primary disease. 62 . A negative result does not preclude the presence of a C.trachomatis or N.gonorrhoeae infection because results are dependent on adequate specimen collection, absence of inhibitors, and sufficient rRNA to be detected. Test results may be affected by improper specimen collection, improper specimen storage, technical error, or specimen mixup. . 63 . A negative result does not preclude the presence of a C.trachomatis or N.gonorrhoeae infection because results are dependent on adequate specimen collection, absence of inhibitors, and sufficient rRNA to be detected. Test results may be affected by improper specimen collection, improper specimen storage, technical error, or specimen mixup. . 64 TOXIC LEVELS: GREATER THAN 150 MCG/ML @ 4HR POST INGEST GREATER THAN 50 MCG/ML @ 12HR POST INGEST The detection limit for ACETAMINOPHEN is 10.0 mcg/ml . Values less than 10.0 mcg/ml cannot be accurately measured. . 65 The detection limit for ETHANOL is 10.0 mg/dl . Values less than 10.0 mg/dl cannot be accurately measured. . 66 The detection limit for SALICYLATE is 4.0 mg/dl. Values less than 4.0 mg/dl cannot be accurately measured. . 67 Anion gap measurement may be of limited value in the presence of any alkalosis, especially in a combined acid base disorder. . 68 Note change in reference range as of 11/15/07. The change was based on recommendations from the [place] [employer]. 69 Please note change in reference range effective 07 . 70 . A negative result does not preclude the presence of a C.trachomatis or N.gonorrhoeae infection because results are dependent on adequate specimen collection, absence of inhibitors, and sufficient rRNA to be detected. Test results may be affected by improper specimen collection, improper specimen storage, technical error, or specimen mixup. . 71 . A negative result does not preclude the presence of a C.trachomatis or N.gonorrhoeae infection because results are dependent on adequate specimen collection, absence of inhibitors, and sufficient rRNA to be detected. Test results may be affected by improper specimen collection, improper specimen storage, technical error, or specimen mixup. . 72 This information has been disclosed to you from confidential records which are protected by [place] State law. State law prohibits you from making further disclosure of this information without the specific written consent of the person to whom it pertains, or as otherwise permitted by law. Any unauthorized further disclosure in violation of state law may result in a fine or long term sentence or both. General authorization for the release of medical or other information is not, except in limited circumstances set forth in Part 63, Title 10, of [facility], sufficient authorization for further disclosure. Disclosure of confidential HIV information that occurs as the result of a general authorization for the release of medical or other information will be in violation of the state law and may result in a fine or a long term sentence. . 73 TEST RESULT RETURNED FROM REFERENCE LABORATORY AND HARDCOPY SENT TO PHYSICIAN(S) OFFICE. 74 Cholesterol Risk Levels (NIH) Recommended: under 200 mg/dl Borderline : 200-239 mg/dl High Risk : Above 240 mg/dl 75 The National Cholesterol Education Program recommends the following ranges for LDL Cholesterol: Optimal under 100 mg/dl Near or above Optimal 100 - 129 mg/dl Borderline High 130 - 159 mg/dl High 160 - 189 mg/dl Very High above 190 mg/dl 76 Triglyceride Risk Levels: Normal : <150 mg/dl Borderline : 150-199 mg/dl High : 200-499 mg/dl Very High : >500 mg/dl 77 LDL/HDL Risk Ratio Levels MALE FEMALE 1/2 X Average 1.00 1.47 Average 3.55 3.22 2 X Average 6.25 5.03 3 X Average 7.99 6.14 78 CHOL/HDL Risk Ratio Levels MALE FEMALE 1/2 X Average 3.4 3.3 Average 5.0 4.4 2 X Average 9.5 7.0 3 X Average 24.0 11.0 79 Index Value: Specimen reactivity relative to the negative cutoff. 80 Negative: Non-reactive by ICMA Positive: Repeatedly reactive by ICMA. Refer to Western Blot confirmatory test for final interpretation. . Physician should family service counselor the patient about result significance. Patient information should be kept strictly confidential. 81 Anion gap measurement may be of limited value in the presence of any alkalosis, especially in a combined acid base disorder. . 82 Classification: Desirable . 83 Classification: Low . 84 CALCULATED LDL APPROXIMATES THE VALUE OF A DIRECT LDL MEASUREMENT. Classification: Near or above optimal . 85 The detection limit for VALPROIC ACID is 10.0 mcg/ml . Values less than 10.0 mcg/ml cannot be accurately measured. . 86 Anion gap measurement may be of limited value in the presence of any alkalosis, especially in a combined acid base disorder. . 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 J18.9 Pneumonia, unspecified organism H53.40 Unspecified visual field defects Office Visit 09/29/2017 1:30p Main Office Ramesh Llanos, Z00.00 Encntr for general PICKING MACHINE OPERATOR HELPER-C adult medical exam w/o abnormal findings R05 Cough Z23 Encounter for immunization Office Visit 09/11/2017 10:45a Main Office Ramesh Llanos R05 Cough PICKING MACHINE OPERATOR HELPER-C Office Visit 08/10/2017 4:30p Main Office Matthew Carrasquillo5 Cough MEDICAL ASSOCIATE Office Visit 07/06/2017 9:15a Main Office Ramesh Llanos, 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 J18.9 Pneumonia, Storm, PICKING MACHINE OPERATOR HELPER-C unspecified organism Office Visit 02/22/2016 8:45a Main Office Desmond S61.412D Laceration without MD Huber foreign body of left hand, subs encntr Office Visit 04/01/2013 10:00a Main Office Justicewnti R. 244.8 Hypothyroidism Other Storm, PICKING MACHINE OPERATOR HELPER-C Spec 296.7 Bipolar I Disorder Current NOS V04.81 Need For Prophylactic Vaccination & Inoculation/Influenza Office Visit 06/29/2010 9:15a Main Office Justicewnti R. 893.0 Open Wound Toe (S) Storm, PICKING MACHINE OPERATOR HELPER-C W/O Complication Office Visit 09/21/2009 4:30p Main Office Marcella Reed V69.2 Sexual Behavior High PA-C Risk Office Visit 01/10/2008 12:15p Main Office Miri Regan 296.7 Bipolar I Disorder Bobby, Current NOS F.N.P.C. V69.2 Sexual Behavior High Risk Office Visit 03/06/2007 11:00a Main Office Justicewnteduardo ROchoa 465.9 URI Upper Storm, PICKING MACHINE OPERATOR HELPER-C Respiratory Infections Acute Unspec Sites V69.2 Sexual Behavior High Risk Office Visit 07/13/2006 1:30p Main Office Miri Regan V70.0 Examination General Bobby F.N.P.C. Medical Routine AT [facility] 272.0 Hypercholesterolemia Pure 296.7 Bipolar I Disorder Current NOS 110.1 Dermatophytosis Nail 110.3 Dermatophytosis Groin & Perianal Area 110.4 Dermatophytosis Foot V69.2 Sexual Behavior High Risk Office Visit 01/20/2006 11:00a Main Office Miri Jass 575.10 Cholecystitis Unspec Bobby, F.N.P.C. Office Visit 01/26/2005 4:45p Main Office Silvio Garcia 296.7 Bipolar I Disorder M.D. Current NOS Office Visit 01/19/2005 4:00p Main Office Silvio Garcia 296.7 Bipolar I Disorder M.D. Current NOS Office Visit 03/31/2003 3:45p Main Office Silvio Garcia 296.7 Bipolar I Disorder M.D. Current NOS Office Visit 03/17/2003 4:00p Main Office Silvio Lessinger, 296.7 Bipolar I Disorder M.D. Current NOS Office Visit 01/06/2003 4:45p Main Office Silvio Garcia, 296.7 Bipolar I Disorder M.D. Current NOS 272.0 Hypercholesterolemia Pure 698.0 Pruritus Ani Office Visit 03/15/2002 3:00p Main Office Silvio Garcia, 296.7 Bipolar I M.D. Disorder Current NOS 272.0 Hypercholesterolemia Pure Office Visit 12/07/2001 Main Office Silvio Garcia, 272.0 Hypercholesterolemia Pure 4:00p M.D. 296.7 Bipolar I Disorder Current NOS Office Visit 09/05/2001 3:45p Main Office Miri Regan V70.0 Examination General Rajeev Rosales Medical Routine AT Health Care Facility 110.4 Dermatophytosis Foot 110.1 Dermatophytosis Nail 110.3 Dermatophytosis Groin & Perianal Area Plan of Treatment 06/20/2018 - Ramesh Llanos, PICKING MACHINE OPERATOR HELPER-CN40.1 Benign prostatic hyperplasia with lower urinary tract symptoNew Medication:Flomax 0.4 mg - 1 by mouth every dayComments:Frequent urination and dribbling over past six months.Enlarged prostate with nodule at proximal aspect of central sulcus.P:PSA lab todayPending results will repeat lab in 6 months or refer to urology.
[2018-07-18 11:05] VITALS: BP 134/84
--- NOTE | 2018-07-18 11:08 | UC ---
Skin Complaint HPI - HPI Summary HPI Summary: 57 yo male presents with tick bite to left chest. He was showering this morning and noticed a tick to his left chest. A friend removed it and pt has it with him today. Unsure how long it was attached, but doesn't think it was there yesterday. He has no symptoms at this time. - History of Current Complaint Chief Complaint: UCGeneralIllness Time Seen by Provider: 07/18/18 11:07 Stated Complaint: TICK LFT CHEST Hx Obtained From: Patient Onset/Duration: Sudden Onset Current Severity: None Pain Intensity: 0 - Allergy/Home Medications Allergies/Adverse Reactions: Allergies Allergy/AdvReac Type Severity Reaction Status Date / Time No Known Allergies Allergy Verified 07/18/18 10:57 Home Medications: Home Medications Tamsulosin CAP* [Flomax CAP*] 0.4 mg PO DAILY 07/18/18 [History Confirmed ] hydrOXYzine HCL TAB* [Atarax 10 MG TAB*] 10 mg PO BEDTIME PRN 07/18/18 [History Confirmed 07/18/18] risperiDONE [Risperdal] 0.25 mg PO BEDTIME PRN 07/18/18 [History Confirmed 07/18] PMH/Surg Hx/FS Hx/Imm Hx - Additional Past Medical History Additional PMH: BPH Endocrine History: Hypothyroidism Psychological History: Anxiety, Bipolar Disorder - Surgical History Surgical History: None - Social History Lives: With Family Alcohol Use: Rare Substance Use Type: None Smoking Status (MU): Never Smoked Tobacco Review of Systems All Other Systems Reviewed And Are Negative: Yes Constitutional: Positive: Negative Skin: Positive: Other - tick bite left chest Respiratory: Positive: Negative Cardiovascular: Positive: Negative Neurovascular: Positive: Negative Neurological: Positive: Negative Psychological: Positive: Negative Physical Exam - Summary Physical Exam Summary: GENERAL: NAD. WDWN. No pain distress. SKIN: LEFT CHEST: there is a 5mm diameter of mild erythema and edema with central 1mm area of superficial skin loss. No streaking, bleeding, or drainage. CHEST: No accessory muscle use. Breathing comfortably and in no distress. CV: Pulses intact. Cap refill <2seconds NEURO: Alert. PSYCH: Age appropriate behavior. Triage Information Reviewed: Yes Vital Signs: Initial Vital Signs Temp 98.3 F 07/18/18 11:00 Pulse 87 07/18/18 11:00 Resp 20 07/18/18 11:00 BP 134/84 07/18/18 11:00 Pulse Ox 100 07/18/18 11:00 Vital Signs Reviewed: Yes Course/Dx - Course Course Of Treatment: Tick with him does not appear engorged. Bite site appears consistent with tick bite and shows no indication of infection at this time. Advised to monitor the area for EM rash and signs/symptoms of lyme disease - if he develops these to follow up with PCP. - Diagnoses Provider Diagnosis: Tick bite Discharge - Sign-Out/Discharge Documenting (check all that apply): Patient Departure All imaging exams completed and their final reports reviewed: No Studies - Discharge Plan Condition: Stable Disposition: HOME Patient Education Materials: Lyme Disease (ED), Tick Bite (ED) Referrals: Ramesh Llanos NP [Primary Care Provider] - Additional Instructions: If you develop a fever, shortness of breath, chest pain, new or worsening symptoms - please call your PCP or go to the ED. Your blood pressure was high at todays visit. Please see your primary provider within 4 weeks for recheck and re-evaluation. TICK BITE: You have been bitten by a tick. Once the tick is removed, these "bites" usually cause no problems. Tick fever, tick paralysis, Diggins Spotted fever, and Lyme disease are uncommon -- but you should mention this tick bite to your doctor if you develop unusual symptoms in the next several weeks. If you develop any of the following, please see your physician promptly: (1) Fever, chills, or generalized malaise associated with a headache. (2) A red round area at the site of the bite (or elsewhere) (3) Joint pain, joint swelling or generalized weakness. (4) Redness, swelling, or drainage at the site of the bite. - Billing Disposition and Condition Condition: STABLE Disposition: Home
== END 2018-07-18 11:20 | disposition home or self-care (01) ==
LOC: UCEAST 10:23
DX: S20.362A Insect bite (nonvenomous) of left front wall of thorax, initial encounter (principal); W57.XXXA Bitten or stung by nonvenomous insect and other nonvenomous arthropods, initial encounter; Y92.9 Unspecified place or not applicable; N40.0 Benign prostatic hyperplasia without lower urinary tract symptoms; E03.9 Hypothyroidism, unspecified; F41.9 Anxiety disorder, unspecified; F31.9 Bipolar disorder, unspecified
CPT/HCPCS: 99211; G0463